=== PATIENT | female | born 1970 | race Two or more races ===

== ENCOUNTER 2025-02-05 20:14 | Emergency (ER) | payer MEDICAID, SELFPAY ==
[2025-02-05 20:33] VITALS: PULSE 89; RESP 19; O2SAT 98; BMI 32.0
[2025-02-05 20:45] VITALS: BP 173/82; PULSE 85; RESP 18; TEMP 37.2; O2SAT 97
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
[2025-02-05] MEDS: KETOROLAC INJ 30 MG/ML VIAL 15 MG IVP (21:53)
[2025-02-05] MEDS: ACETAMINOPHEN 500 MG TABLET 1000 MG PO (21:53)
[2025-02-05 21:54] VITALS: PULSE 82; RESP 19; TEMP 37.2; O2SAT 96
== END 2025-02-05 22:00 | disposition home or self-care (01) ==
PROVIDERS: Emergency Provider Emergency Medicine
DX: S13.4XXA Sprain of ligaments of cervical spine, initial encounter (principal); V49.50XA Passenger injured in collision with unspecified motor vehicles in traffic accident, initial encounter
CPT/HCPCS: 96374; 99284; J1885; A9270